=== PATIENT | female | born 1995 | race Caucasian/White ===

== ENCOUNTER 2022-01-15 11:33 | Outpatient (CLI) | payer OTHER, SELFPAY ==
[2022-01-15 11:50] LABS: Hematocrit 39.2 % (37.0-47.0); Hemoglobin 13.2 g/dL (12.0-15.0); Mean Corpuscular HGB Conc 33.7 g/dl (32-36); Mean Corpuscular Hemoglobin 30.6 pg (26-34); Mean Corpuscular Volume 90.7 fl (80-100); Mean Platelet Volume 8.3 fl (7.4-10.4); Platelet Count Result 315 k/mm3 (150-375); Red Blood Count 4.32 M/mm3 (4.2-5.4); Red Cell Distribution Width 12.5 % (11.5-14.5); White Blood Count 11.7 K/mm3 (4.5-10.0)
[2022-01-15 12:16] LABS: Alanine Aminotransferase 17 U/L (6-35); Albumin Level 4.6 g/dL (3.5-5.1); Alkaline Phosphatase 78 U/L (38-126); Anion Gap 13 mmol/L (8-16); Aspartate Amino Transferase 30 U/L (14-36); Bilirubin,Total 0.2 mg/dL (0.2-1.3); Blood Urea Nitrogen 16 mg/dL (7-17); Carbon Dioxide 25 mmol/L (22-30); Chloride 101 mmol/L (98-107); Estimated Glomerular Filt Rate 49; Glucose 93 mg/dL (65-110); Potassium 3.9 mmol/L (3.4-5.0); Sodium 139 mmol/L (137-145)
[2022-01-18 14:36] LABS: Progesterone 12.4 ng/mL (***)
== END 2022-01-15 11:34 | disposition home or self-care (01) ==
PROVIDERS: PCP Family Medicine; Visit Provider Physician Assistant Medical
DX: O03.9 Complete or unspecified spontaneous abortion without complication (principal); E78.2 Mixed hyperlipidemia; R53.83 Other fatigue; Z3A.00 Weeks of gestation of pregnancy not specified
CPT/HCPCS: 36415; 80053; 84144; 85027

== ENCOUNTER 2022-01-15 15:25 | Outpatient (CLI) | payer OTHER, SELFPAY ==
[2022-01-15 16:01] LABS: Add Urine Microscopic? YES; Appearance Urine Clear (Clear); Bacteria Urine Trace /hpf; Bilirubin Urine Negative (Negative); Blood Urine Negative (Negative); Color Urine Yellow (Yellow); Glucose Urine UA Negative (Negative); Ketones Urine Negative (Negative); Leukocyte Esterase Ur Trace LEU/UL (NEGATIVE); Nitrate Urine Negative (Negative); Protein Urine Negative (Negative); Specific Grav Ur 1.016 (1.001-1.035); Squamous Epithelial Cell Urine Moderate /hpf (Few); Urobilinogen Urine Negative mg/dL (<2.0); WBC Urine 0-3 /hpf (0-3)
== END 2022-01-15 15:26 | disposition home or self-care (01) ==
PROVIDERS: PCP Family Medicine; Visit Provider Physician Assistant Medical
DX: R30.0 Dysuria (principal)
CPT/HCPCS: 81001; 87086

== ENCOUNTER 2022-01-27 09:32 | Outpatient (CLI) | payer OTHER, SELFPAY ==
[2022-01-31 16:26] LABS: Progesterone 17.8 ng/mL (***)
== END 2022-01-27 09:33 | disposition home or self-care (01) ==
LOC: ANHLAB 09:32 → ANHGOSHLAB 12:24
PROVIDERS: PCP Family Medicine; Visit Provider Obstetrics & Gynecology
DX: Z34.90 Encounter for supervision of normal pregnancy, unspecified, unspecified trimester (principal); Z3A.00 Weeks of gestation of pregnancy not specified
CPT/HCPCS: 36415; 84144; 84702

== ENCOUNTER 2022-02-01 11:30 | Outpatient (CLI) | payer OTHER, SELFPAY ==
[2022-02-01 18:42] LABS: Basophils Percent Auto 0.4 % (0.2-1.2); Eosinophils Percent Auto 0.4 % (0-4.4); Hematocrit 38.5 % (37.0-47.0); Hemoglobin 12.7 g/dL (12.0-15.0); Immature Granulocyte Absolute 0.03 K/mm3 (0.00-0.031); Immature Granulocyte Percent A 0.3 % (0-0.5); Lymphocytes Absolute Auto 2.05 K/mm3 (0.9-3.2); Mean Corpuscular Hemoglobin 30.6 pg (26-34); Mean Corpuscular Volume 92.8 fl (80-100); Mean Platelet Volume 8.9 fl (7.4-10.4); Monocytes Absolute Auto 0.7 K/mm3 (0.1-0.6); Monocytes Percent Auto 7.8 % (2.6-8.5); Neutrophils Absolute Auto 6.1 K/mm3 (1.3-6.7); Neutrophils Percent Auto 68.1 % (45.5-73.1); Platelet Count Result 308 k/mm3 (150-375); Red Blood Count 4.15 M/mm3 (4.2-5.4); Red Cell Distribution Width 12.9 % (11.5-14.5); White Blood Count 8.9 K/mm3 (4.5-10.0)
[2022-02-01 19:00] LABS: Anion Gap 14 mmol/L (8-16); Blood Urea Nitrogen 11 mg/dL (7-17); Calcium 8.9 mg/dL (8.4-10.2); Carbon Dioxide 23 mmol/L (22-30); Chloride 100 mmol/L (98-107); Estimated Glomerular Filt Rate > 60; Glucose 92 mg/dL (65-110); Potassium 3.5 mmol/L (3.4-5.0); Sodium 137 mmol/L (137-145)
== END 2022-02-01 11:31 | disposition home or self-care (01) ==
LOC: ANHGOSHLAB 11:32
PROVIDERS: PCP Family Medicine; Visit Provider Physician Assistant Medical
DX: N17.9 Acute kidney failure, unspecified (principal); D72.829 Elevated white blood cell count, unspecified
CPT/HCPCS: 36415; 80048; 85025

== ENCOUNTER 2022-02-03 09:14 | Outpatient (RCR) | payer OTHER, SELFPAY | END 2022-04-25 23:59 | disposition home or self-care (01) | LOC: ANHLAB 09:14 | PROVIDERS: PCP Family Medicine; Visit Provider Obstetrics & Gynecology | DX: O26.20 Pregnancy care for patient with recurrent pregnancy loss, unspecified trimester (principal); Z3A.00 Weeks of gestation of pregnancy not specified | CPT/HCPCS: 36415; 84702 ==

== ENCOUNTER 2022-02-24 08:25 | Outpatient (CLI) | payer OTHER, SELFPAY ==
[2022-02-24 19:41] LABS: Hematocrit 38.4 % (37.0-47.0); Hemoglobin 12.5 g/dL (12.0-15.0); Mean Corpuscular HGB Conc 32.6 g/dl (32-36); Mean Corpuscular Hemoglobin 30.6 pg (26-34); Mean Corpuscular Volume 93.9 fl (80-100); Mean Platelet Volume 9.1 fl (7.4-10.4); Platelet Count Result 327 k/mm3 (150-375); Red Blood Count 4.09 M/mm3 (4.2-5.4); Red Cell Distribution Width 12.7 % (11.5-14.5); White Blood Count 9.7 K/mm3 (4.5-10.0)
[2022-02-24 20:38] LABS: HIV 1/2 Ab P24 Ag Result Negative (Negative)
[2022-02-24 20:51] LABS: Hepatitis B Surface Antigen Negative (Negative); Rubella IgG Antibody 16.3 IU/ML
[2022-02-25 13:35] LABS: Rapid Plasma Reagin Non-Reactive (NonReactive)
[2022-03-04 22:50] LABS: CF Result NEGATIVE (NEGATIVE); Ethnicity NG
== END 2022-02-24 08:26 | disposition home or self-care (01) ==
LOC: ANHGOSHLAB 08:27
PROVIDERS: PCP Family Medicine; Visit Provider Obstetrics & Gynecology
DX: Z34.90 Encounter for supervision of normal pregnancy, unspecified, unspecified trimester (principal); Z3A.00 Weeks of gestation of pregnancy not specified
CPT/HCPCS: 36415; 81220; 85027; 86592; 86703; 86762; 86850; 86900; 86901; 87340; G0432

== ENCOUNTER → 2022-05-04 15:48 | Outpatient (CLI) | payer OTHER, SELFPAY ==
--- NOTE | ~2022-05-04 | US_ITS ---
EXAMINATION: US OB /maternal detail DATE: 05/04/2022 16:41 INDICATION: Assess dating of and obtain anatomic survey during second trimester of pr egnancy. TECHNIQUE: Multiple obstetric sonographic images performed. FINDINGS: There is a single living fetus in vertex presentation. The placenta is anterior with caudal margin 6 cm from the internal cervical os. Cervical length measures at least 3.3 cm. Normal amniotic fluid vo lume. Amniotic fluid volume is subjectively normal. heart rate of 140 beats per minute. The following anatomy was identified as normal: Ventricles, choroid plexus, falx and cava septum pellucidum Cerebellum and cisterna magna Nuchal fold Spine Heart Diaphragm Stomach Kidneys Bladder 3 vessel cord and cord insertion Bilateral upper and lower extremities including hands and feet Suboptimal imaging of the lips and nose. The following biometric data were obtained: BPD: 4.3 cm -> 19 weeks 0 days Head circumference: 15.7 cm -> 18 weeks 4 days Abdominal circumference: 13.4 cm -> 18 weeks 6 days Femur length: 2.7 cm -> 18 weeks 0 days These measurements are concordant. Head circumference to abdominal circumference ratio: 1.17 (normal range 1.09-1.27). Estimated weight: 245 g (+/-) 37 g. or 9 oz. (+/-) 1 oz. IMPRESSION: 1. Single living fetus with vertex presentation with heart rate of 140 bpm. 2. Gestational age by ultrasound of 18 weeks 4 day(s) (+/-) 1 week 2 day(s) with ultrasound estimat ed date of delivery (BRENDA) of 10/01/2022. Estimated weight is 21st percentile by Hadlock criteria when 09/28/2022 is used as the BRENDA. Please correlate with clinical information or earlier ultrasounds for most accurate BRENDA. 3. Normal survey aside from nondiagnostic imaging of the lips and nose. Reviewed, dictated and finalized at location B. GRATION ANALYST IMPRESSION: 1. Single living fetus with vertex presentation with heart rate of 140 b pm. 2. Gestational age by ultrasound of 18 weeks 4 day(s) (+/-) 1 week 2 day(s) w ith ultrasound estimated date of delivery (BRENDA) of 10/01/2022. Estimated w eight is 21st percentile by Hadlock criteria when 09/28/2022 is used as the BRENDA. Please correlate with clinical information or earlier ultrasounds for most acc urate BRENDA. 3. Normal survey aside from nondiagnostic imaging of the lips and nose.
== END ==
PROVIDERS: PCP Family Medicine; Visit Provider Obstetrics & Gynecology
DX: Z36.89 Encounter for other specified antenatal screening (principal); Z3A.18 18 weeks gestation of pregnancy
CPT/HCPCS: 76805

== ENCOUNTER → 2022-06-01 15:52 | Outpatient (CLI) | payer OTHER, SELFPAY ==
--- NOTE | ~2022-06-01 | US_ITS ---
EXAMINATION: US OB follow up DATE: 06/01/2022 16:17 INDICATION: Estimated weight. Follow-up Limited survey. TECHNIQUE: Multiple obstetric sonographic images performed. FINDINGS: Comparison ultrasound dated 05/04/2022 There is a single living fetus in vertex presentation. The placenta is anterior without placenta pre via. Placental margin to the cervix is 4.9 cm. Amniotic fluid volume is subjectively normal. ca rdiac activity and movement is noted with a heart rate of beats per minute. Limited survey demonstrates normal upper lip. The following biometric data were obtained: BPD: 54mm corresponds to gestational age 22 weeks 3 days. Head circumference: 203 mm corresponds to gestational age 22 weeks 3 days. Abdominal circumference: 170 mm corresponds to gestational age 22 weeks 0 days. Femur length: 38 mm corresponds to gestational age 22 weeks 2 days. Head circumference to abdominal circumference ratio: 1.19 (normal range for expected gestational age is 1.05-1.22). Estimated weight: 478 grams +/- 72 grams using Hadlock method, 11%. IMPRESSION: 1: Single living intrauterine with an estimated gestational age of 22weeks 4days by initial ultrasound measurements, with an EDC of 10/01/2022 in vertex presentation. 2. Normal limited survey. Reviewed, dictated and finalized at location B. SINKING MACHINE OPERATOR IMPRESSION: 1: Single living intrauterine with an estimated gestational age of 22 weeks 4days by initial ultrasound measurements, with an EDC of 10/01/2022 in ese marilyn presentation. 2. Normal limited survey.
== END ==
PROVIDERS: PCP Family Medicine; Visit Provider Obstetrics & Gynecology
DX: Z36.9 Encounter for antenatal screening, unspecified (principal); Z3A.22 22 weeks gestation of pregnancy
CPT/HCPCS: 76816

== ENCOUNTER 2022-06-30 12:32 | Outpatient (CLI) | payer OTHER, SELFPAY ==
[2022-06-30 19:51] LABS: Glucose 1 Hour PP 50gm Dose 165 mg/dL
[2022-06-30 19:56] LABS: Hemoglobin 10.8 g/dL (12.0-15.0)
[2022-06-30 20:08] LABS: Hepatitis C Virus Antibody Negative (Negative)
[2022-06-30 20:16] LABS: HIV 1/2 Ab P24 Ag Result Negative (Negative)
== END 2022-06-30 12:33 | disposition home or self-care (01) ==
LOC: ANHGOSHLAB 12:35
PROVIDERS: PCP Family Medicine; Visit Provider Obstetrics & Gynecology
DX: Z34.90 Encounter for supervision of normal pregnancy, unspecified, unspecified trimester (principal); Z3A.00 Weeks of gestation of pregnancy not specified
CPT/HCPCS: 36415; 82947; 85014; 85018; 86703; 86803; G0432

== ENCOUNTER 2022-07-06 06:56 | Outpatient (CLI) | payer OTHER, SELFPAY ==
[2022-07-06 07:30] LABS: Glucose Fasting Gestational 87 mg/dL (>/=95)
[2022-07-06 09:32] LABS: Glucose 1 Hour Gest 120 mg/dL (>/=180)
[2022-07-06 11:19] LABS: Glucose 2 Hour Gest 117 mg/dL (>/= 155)
[2022-07-06 11:21] LABS: Glucose 3 Hour Gest 119 mg/dL (>/=140)
== END 2022-07-06 06:57 | disposition home or self-care (01) ==
PROVIDERS: PCP Family Medicine; Visit Provider Obstetrics & Gynecology
DX: R73.09 Other abnormal glucose (principal)
CPT/HCPCS: 36415; 82951; 82952

== ENCOUNTER 2022-08-03 16:52 | Emergency (ER) | payer OTHER, SELFPAY ==
[2022-08-03 17:09] VITALS: BP 130/66; PULSE 78; RESP 20; TEMP 36.9; O2SAT 100
--- NOTE | 2022-08-03 17:27 | ED.EYEPROB ---
HPI - Eye Problem General Chief complaint: Eye Problems Stated complaint: lt eye irritation Time Seen by Provider: 08/03/22 17:35 Source: patient Mode of arrival: ambulatory Limitations: no limitations History of Present Illness HPI Narrative: patient is a 26-year-old female that presents with left eye redness and irritation for 3 days. Patient reports discharge from my at start of symptoms but has not had any since. Has been using red eye lubricating drops with mild relief. Denies any vision changes, fever, chills, congestion, ear pain, sore throat. patient is also 32 weeks Related Data Home Medications Medication Instructions Recorded Confirmed prenat.vits,jerrell,[id number] 1 tablet PO DAILY 01/15/22 08/03/22 Allergies Allergy/AdvReac Type Severity Reaction Status Date / Time No Known Allergies Allergy Verified 08/03/22 17:05 Review of Systems Review of Systems: All systems reviewed & are unremarkable except as noted in HPI and below Constitutional: Constitutional: Denies body ache(s), Denies fever(s), Denies headache(s), Denies malaise and Denies weakness Eyes: Eyes: Denies blurry vision, Reports eye discharge, Reports irritation, Reports itchy eyes, Denies loss of vision and Reports eye pain ENT: Denies otalgia, Denies headache(s), Denies nasal discharge, Denies sinus pain and Denies sore throat Cardiovascular: Cardiovascular: Denies chest pain, Denies irregular heart rhythm and Denies dyspnea Respiratory: Respiratory: Denies dyspnea Gastrointestinal: Gastrointestinal: Denies abdominal pain, Denies diarrhea, Denies nausea and Denies vomiting Musculoskeletal: Musculoskeletal: Denies back pain, Denies myalgias and Denies arthralgias Integumentary/Breasts: Skin/Breast: Denies pruritus and Denies rash Neurologic: Denies headache(s), Denies loss of vision and Denies weakness Psychiatric: Psychiatric: Reports no additional psychiatric complaints Allergic/Immunologic: Allergic/Immunologic: Reports itchy eyes PMFSH Past Medical History Medical History (Updated 08/03/22 @ 17:41 by Mikayla Dewitt, RATING EXAMINER) Hx of one miscarriage Surgical History Surgical History [place] teeth removed Family History Family History (Updated 01/15/22 @ 10:52 by Gabriella Tomlinson CMA) Father Alcoholism Hypertension Grandparent Alcoholism Hypertension [place] Mother Hypothyroidism Social History Social History (Updated 01/15/22 @ 10:56 by Gabriella Tomlinson [facility]) Smoking status: Never smoker Alcohol intake: never Substance use: never Substance use type: does not use Spiritual care concerns: Yes Agree to blood products: Yes Comments At time of signature, agree with nursing past medical, surgical, social and family history. There is no relevant family history pertinent to the presenting complaint. Exam Const: General: cooperative, healthy appearing, comfortable, no acute distress and well nourished Nutritional Appearance: well nourished Orientation/consciousness: patient oriented x3 Limitations: no limitations HENMT: Head: normal to inspection, normocephalic and atraumatic Ears: external ears normal Face/Nose/Sinus: Normal external nose present, normal facial exam and face symmetric Face and sinus: normal facial exam and face symmetric Mouth: Yes lip normal Eyes: General: appearance normal, both eyes and all related structures Visual Taylor: normal visual taylor by confrontation Alignment and Position: alignment normal and position normal Periorbital: periorbital findings normal Eyelids: eyelids normal Conjunctivae: conjunctival abnormality left conjunctival injection diffuse and discharge mucoid Sclera: scleral abnormality left scleral injection medial; without scleral tenderness Pupils: Equal, round and reactive pupils present EOM: EOMs intact bilaterally Direct Ophthalmoscopy: no photophobia Other: No hyp
== END 2022-08-03 17:43 | disposition home or self-care (01) ==
PROVIDERS: Emergency Provider Nurse Practitioner Family; PCP Family Medicine
DX: O99.891 Other specified diseases and conditions complicating pregnancy (principal); Z3A.32 32 weeks gestation of pregnancy; H10.9 Unspecified conjunctivitis
CPT/HCPCS: 99213; G0463

== ENCOUNTER 2022-09-30 16:46 | Outpatient (RCR) | payer OTHER, SELFPAY ==
[2022-09-16 18:10] VITALS: BP 113/63; PULSE 71
[2022-09-30 17:41] VITALS: BP 118/65; PULSE 62
== END 2022-11-22 13:07 | disposition home or self-care (01) ==
LOC: ANHOBOP 16:46
PROVIDERS: PCP Family Medicine; Visit Provider Obstetrics & Gynecology
DX: O36.5930 Maternal care for other known or suspected poor fetal growth, third trimester, not applicable or unspecified (principal); Z3A.38 38 weeks gestation of pregnancy
CPT/HCPCS: 59025

== ENCOUNTER 2022-10-04 21:24 | Inpatient (IN) | payer OTHER, SELFPAY ==
[2022-10-04 21:39] VITALS: RESP 16; TEMP 36.6
[2022-10-04 22:22] VITALS: BMI 30.9
--- NOTE | 2022-10-04 22:24 | LDADM ---
This patient, Tess Nunez, was admitted to Labor/Delivery/Recovery 104 on 10/04/22 at 21:24. Plans for labor, pain management and were discussed with patient. Patient/family oriented to hospital policies and general routines including ID bracelet, bed and alarms, visiting hours, pain management, procedures, bathroom and other care routines, personal items, smoking policy, room service/diet and guest tray routines, infant security routines, and visiting hours. Patient/Family are encouraged to report perceived risks to care and to ask questions if they do not understand what they are told or what they should do. See OBIX for further documentation.
[2022-10-04] MEDS: LACTATED RINGERS 1,000 ML 125 ML IV CONT (22:38)
[2022-10-04] MEDS: ONDANSETRON INJ 4 MG/2 ML VIAL IV PUSH (22:39)
[2022-10-04] MEDS: AMPICILLIN 2 GM/NS 100 ML 2 GM/100 ML BAG IVPB (22:39)
[2022-10-04 22:40] LABS: Basophils Absolute Auto 0.1 K/mm3 (0.0-0.1); Basophils Percent Auto 0.4 % (0.2-1.2); Eosinophils Absolute Auto 0.1 K/mm3 (0-0.3); Eosinophils Percent Auto 0.3 % (0-4.4); Hematocrit 35.3 % (37.0-47.0); Hemoglobin 11.7 g/dL (12.0-15.0); Immature Granulocyte Absolute 0.12 K/mm3 (0.00-0.031); Immature Granulocyte Percent A 0.6 % (0-0.5); Lymphocytes Absolute Auto 2.21 K/mm3 (0.9-3.2); Lymphocytes Percent Auto 11.7 % (18.3-44.2); Mean Corpuscular HGB Conc 33.1 g/dl (32-36); Mean Corpuscular Hemoglobin 29.1 pg (26-34); Mean Corpuscular Volume 87.8 fl (80-100); Mean Platelet Volume 9.2 fl (7.4-10.4); Monocytes Absolute Auto 1.1 K/mm3 (0.1-0.6); Monocytes Percent Auto 5.5 % (2.6-8.5); Neutrophils Absolute Auto 15.5 K/mm3 (1.3-6.7); Neutrophils Percent Auto 81.5 % (45.5-73.1); Platelet Count Result 327 k/mm3 (150-375); Red Blood Count 4.02 M/mm3 (4.2-5.4); Red Cell Distribution Width 13.2 % (11.5-14.5)
[2022-10-05] VITALS (17 sets, daily range): BP systolic 92–125; BP diastolic 45–65; PULSE 50–82; RESP 14–16; TEMP 36.3–37.5; O2SAT 97–100
[2022-10-05] MEDS: AMPICILLIN 1 GM/NS 50 ML 1 GM/50 ML BAG IVPB ×2 (02:55→07:00)
--- NOTE | 2022-10-05 07:50 | WPDOBADMIT ---
Obstetrics - Admit Note Admission Note: record reviewed. Additions to the history and/or subsequent changes in the physical findings follow. 26 y/o at 41 weeks here with contractions. Labor diagnosed. GBS pos. Feeling painful contractions. AVSS NST reactive TOCO contractions every 2-4 min ABD soft, nontender, gravid, vertex EXT nontender Cervix 8/100/0. AROM with clear fluid. Vertex. A: IUP at term with labor. GBS pos. P: Augment labor as needed. Ampicillin. Anticipate .
--- NOTE | 2022-10-05 09:24 | PM.OBPRVD ---
OB - Delivery Note Procedure Delivery date: 10/05/22 Procedure: Induction method: None Delivery augmentation: Rupture of Membranes Delivery monitor: External FHT and External Uterine Route of delivery: Laceration Description: Perineal - 2nd Degree Delivery repair: vicryl (3-0) Specimen: Yes (Cord blood) Quantitative Blood Loss (ml): 120 Anesthesia type: Local (1% lidocaine) Disposition: PACU Complications: None Narrative: 26 y/o at 41 weeks gestation who presented to the hospital with contractions. Labor was diagnosed. She received ampicillin for GBS colonization. Amniotomy was performed with return of clear fluid. Her cervix dilated completely. She pushed with good effort and delivered the infant's head to the perineum, followed by the body. The nose and mouth were bulb suctioned. After a delay, the cord was clamped and cut. The was handed off the field. Cord blood was collected. The placenta delivered spontaneously and was grossly normal in appearance. The usual 3 vessel cord was noted. A second degree midline perineal laceration was sustained. This was infiltrated with 10 mL of 1% lidocaine and reapproximated using 3 0 Vicryl in the usual layered fashion. Excellent hemostasis resulted as did excellent reapproximation of the normal anatomy. Needle and instrument counts were correct. The patient was taken to recovery room in stable condition. The infant went to the nursery in stable condition. I was present and scrubbed for the entire delivery. [place] Baby Date of : 10/05/22 Time of : 09:01 Weeks of gestation at delivery: 41 Infant gender: Female Weight (pounds): 6 Weight (ounces): 5 presentation: vertex position: Left Occiput Anterior Placenta delivery description: Spontaneous and Normal Configuration Cord Vessel Description: 3 Vessels and Delayed Cord Clamping score one minute: 9 score five minutes: 9
--- NOTE | 2022-10-05 09:27 | P.DS_ITS ---
DS: Admitting Diagnosis Discharge Date 10/07/22 Admitting Diagnosis IUP at 41 weeks DS: Discharge Diagnosis Discharge Diagnosis (1) (normal spontaneous vaginal delivery): Code(s): O80 - Encounter for full-term uncomplicated delivery Status: Acute OB - DS: Summary OB Procedures : None OB Procedures Intrapartum: Spontaneous Vag Delivery OB Procedures: : None Time Spent with Patient Time attestation: Total time spent providing and/or coordinating discharge services: DS: Data Data Completed and Pending Labs on day of discharge: Labs from last 24 hours 10/04/22 22:30 WBC 19.0 H RBC 4.02 L Hgb 11.7 L Hct 35.3 L MCV 87.8 MCH 29.1 MCHC 33.1 RDW 13.2 Plt Count 327 MPV 9.2 Immature Gran % (Auto) 0.6 H Neut % (Auto) 81.5 H Lymph % (Auto) 11.7 L [place] % (Auto) 5.5 Eos % (Auto) 0.3 Baso % (Auto) 0.4 Lymph # (Auto) 2.21 [place] # (Auto) 1.1 H Eos # (Auto) 0.1 Baso # (Auto) 0.1 Abs Immat Gran (auto) 0.12 H Absolute Neuts (auto) 15.5 H Absolute Nucleated RBC 0.0 Nucleated RBC % 0.0 RPR Pending Blood Type O Positive Antibody Screen Negative Discharge Plan Discharge Attending physician on discharge: Denzel Ayers Discharging Clinician: Denzel Ayers Patient Disposition: Home, Self-Care Activity: pelvic rest Diet: regular Discharge Instructions: Call or return if temperature above 100.4? F, increased abdominal pain, increased vaginal bleeding or any new problems. Stand Alone Forms: General Discharge Information Follow-up/Referrals: Denzel Ayers MD [Physician] - 6 Weeks Discharge Medications: New ibuprofen 600 mg tablet 600 mg PO Q6H PRN (Reason: cramps) Qty: 30 0RF Continued prenat.vits,jerrell,[id number] Tablet 1 tablet PO DAILY Discontinued ondansetron HCl 4 mg tablet 4 mg PO DAILY Date of admission: 10/04/22 21:24 Primary Care Provider: Nadege Klein Admitting Provider: Denzel Ayers Attending physician on admission: Denzel Ayers Condition: Stable
--- NOTE | 2022-10-05 10:47 | PC.NURSE ---
1000 -Introductions were made, then consulted with patient to assess needs related to . Mother led the conversation with her?plans to feed?her infant and is demonstrating infant on the right breast using a cross cradle positioning. Mother states the feeding feels a little pinching so we investigated the latch. Mother works well with her infant with encouragement and is willing to learn. Reviewed positioning, supporting the breast with a sandwich hold to facilitate a deep latch, asymmetrical latch (off-center), leading with the chin with a big, open, wide gape and body close to mother. latched optimally to the left breast in cross cradle/laid-back position. Education given to mother of how to visualize good rocking jaw motion. Infant was able to maintain latch without discomfort to mother. Nipple care reviewed with optimal latch and good positioning. Resources provided for inpatient and outpatient services with the [facility]. I plan to assess for needs later on the post floor. Reported to the primary malika RN.
[2022-10-05] MEDS: IBUPROFEN 600 MG TABLET PO ×2 (11:03→18:57)
[2022-10-05] MEDS: WITCH HAZEL 40 PADS 1 PAD TOPICAL (11:04)
[2022-10-05] MEDS: BENZOCAINE 20% AER SPR (*SP) 56 GM CAN 1 SPRAY TOPICAL (11:04)
--- NOTE | 2022-10-05 11:35 | OBPPTRN ---
Patient transferred to post room #286 via wheelchair. Support person present. Oriented to unit, room, information board, rooming in, admission packet and security measures. Patient verbalizes understanding.
[2022-10-05] MEDS: OXYTOCIN 30 UNITS/NS 500 ML 30 UNITS/500 ML BAG 125 UNITS IV CONT (12:49)
[2022-10-05 13:25] LABS: Rapid Plasma Reagin Non-Reactive (NonReactive)
--- NOTE | 2022-10-05 16:02 | PC.NURSE ---
1428 - Consulted with patient to assess needs. Patient states she just finished her infant and parents were going to take a nap. Mother states is going well and without pain. Reviewed milk production with frequency of feeding removing the milk. Name was put on the communication board and mother was reminded to call for assistance if there is pain with the latch, doesn't wake to , or assistance with latching.
[2022-10-05] MEDS: DOCUSATE SODIUM 100 MG CAPSULE PO (16:27)
[2022-10-05] MEDS: ACETAMINOPHEN 325 MG TABLET 650 MG PO (16:27)
[2022-10-06] MEDS: IBUPROFEN 600 MG TABLET PO ×3 (01:36→19:35)
[2022-10-06 04:38] LABS: Hemoglobin 10.1 g/dL (12.0-15.0)
[2022-10-06] MEDS: ACETAMINOPHEN 325 MG TABLET 650 MG PO ×2 (06:08→17:01)
[2022-10-06 08:55] VITALS: BP 99/55; PULSE 60; RESP 18; TEMP 37.2; O2SAT 99
[2022-10-06] MEDS: DOCUSATE SODIUM 100 MG CAPSULE PO ×2 (09:13→17:01)
[2022-10-06] MEDS: MULTIVIT/MIN/PREN/FOL AC/IRON TABLET 1 TAB PO (09:13)
--- NOTE | 2022-10-06 12:07 | PC.NURSE ---
This morning Mother verbalizes she is able to independently latch with appropriate positioning/alignment. She denies any nipple discomfort and is responsively . This morning infant was sleepy and was syringe fed colostrum. Infant is currently meeting outcomes for weight, output, jaundice and feeding frequencies of 8-12 times in 24 hours. Mother is encouraged to call for assistance if her infant doesn?t latch or there is discomfort with latching. Mother voiced understanding of information shared and will call for the next feeding for an assessment using the vocera number. Primary RN present.
--- NOTE | 2022-10-06 12:54 | PC.NURSE ---
Primary RN reported that mother breastfed her without pain in the last two hours.
--- NOTE | 2022-10-06 15:01 | PM.OBPNVD ---
OB - PN: Subj Subjective Date/time seen: 10/06/22 15:01 Narrative: Pain OK. OB - PN: Obj Data Labs 10/06/22 02:24 Labs: Laboratory Results - last 24 hr 10/06/22 02:24 Hgb 10.1 L Hct 31.0 L OB - PN A/P Plan day: 1 Comments: A: PPD#1, doing well. P: Routine care. Exam Psych: Other: AVSS ABD soft, nontender, fundus firm EXT nontender
--- NOTE | 2022-10-06 16:09 | PC.NURSE ---
[id number] Requested assessment. Mother led the conversation with her?plans to feed?her and the?experience so far. Mother works well with her infant with encouragement and education. Mother acknowledges understanding of [id number], stimulation with touch to wake infant and preparing breast for . opens to latch just barely past 90 degrees, lips flanged, mothers breast are soft/pliable and supported with the sandwich hold. Mother states at times infant opens wider and mother was encouraged that some feedings will go easier than others and to keep practicing good technique rewarding a big, open, wide gape for a latch. Infant latched to the left breast in cross cradle position. Occasionally there's dimpling, but mother denies pain. swallows intermittently and education given to mother of how to visualize the difference between sucking and swallowing. Infant was able to maintain latch without discomfort to mother. Nipple care reviewed with optimal latch and good positioning. Mother has been frequently with exception to somewhat of a stretch this morning. 's output is appropriate and impressive. Resources used to facilitate learning were used with the tool. Mother voiced understanding of skin to skin, stimulating with massage touch, responsive feedings, massage touch to encourage if it has been 2 -2.5 hours since the start of the last , to call if does not latch, or if there is discomfort with . Parents voiced understanding of information. Reported to the primary RN.
[2022-10-06 19:25] VITALS: BP 109/44; PULSE 56; RESP 16; TEMP 36.5; O2SAT 100
[2022-10-07] MEDS: MULTIVIT/MIN/PREN/FOL AC/IRON TABLET 1 TAB PO (07:33)
[2022-10-07] MEDS: ACETAMINOPHEN 325 MG TABLET 650 MG PO (07:33)
[2022-10-07] MEDS: DOCUSATE SODIUM 100 MG CAPSULE PO (07:33)
--- NOTE | 2022-10-07 08:39 | PM.OBPNVD ---
OB - PN: Subj Subjective Date/time seen: 10/07/22 08:39 Narrative: Pain OK. Would like to go home. OB - PN: Obj Data Labs 10/06/22 02:24 OB - PN A/P Plan Comments: A: PPD#2, doing well. P: Home to f/u 6 weeks. Exam Psych: Other: AVSS ABD soft, nontender, fundus firm EXT nontender
[2022-10-07 08:40] VITALS: BP 110/67; PULSE 63; RESP 18; TEMP 37.1; O2SAT 100
[2022-10-07] MEDS: TETANUS,DIPHTHERIA,AC PERTUSSIS ADULT (0.5 ML) BOOSTRIX IM (09:40)
--- NOTE | 2022-10-07 09:54 | PC.NURSE ---
Patient viewed the discharge video Mother & Baby Care, The First Two Weeks . Patient was given the opportunity and encouraged to ask questions. Patient verbalized understanding of information shared and has been given the mother/baby guide for home reference.
--- NOTE | 2022-10-07 10:55 | PC.NURSE ---
0820 - Mother states she is well with no pain. 's weight is rounded up to 10% loss, therefore the parents will be supplementing until mother's full milk supply is present. Offer of support and assistance is provided.
[2022-10-08 11:28] VITALS: BP 119/68; PULSE 75; RESP 18; TEMP 36.7; O2SAT 100
== END 2022-10-07 11:20 | disposition home or self-care (01) | DRG 807 ==
LOC: ANHLDR 10-05 09:28 → ANHOB2 10-05 11:35
PROVIDERS: Admitting Provider Obstetrics & Gynecology; PCP Family Medicine; Visit Provider Obstetrics & Gynecology
DX: O99.824 Streptococcus B carrier state complicating childbirth (principal); Z37.0 Single live birth; Z3A.41 41 weeks gestation of pregnancy; O70.1 Second degree perineal laceration during delivery
CPT/HCPCS: 36415; 85014; 85018; 85025; 86592; 86850; 86900; 86901; 90715; A9270; J0290; J2405; J2590; J7120